=== PATIENT | male | born 1955 | race Caucasian/White ===

== ENCOUNTER 2018-03-08 16:33 | Emergency (ER) | payer MEDICAID ==
[~2018-03-08] VITALS: Ht 172.7 cm; Wt 90.0 kg
[~2018-03-08 16:33] MED LIST: ALBU0.0912 IH; ATOR40TA PO; BUDE1AER IH; CARV25TA PO; FURO-572 PO; POTA20TE62 PO; VAN500I PO; [UNRECOGNIZED DRUG - CODE] PO; [UNRECOGNIZED DRUG - CODE] PO
[2018-03-08 17:18] VITALS: BP 110/49
[2018-03-08 18:34] LABS: BASOPHILS % (AUTO) 0.4 % (0.0-2.0); EOSINOPHILS # (AUTO) 0.1 K/uL (0-0.4); HEMATOCRIT 45.5 % (36-52); HEMOGLOBIN 15.6 g/dL (12.0-18.0); LYMPHOCYTES # (AUTO) 1.2 K/uL (2.0-11.5); LYMPHOCYTES % (AUTO) 11.7 % (20.5-51.1); MEAN CORPUSCULAR HEMOGLOBIN 33 pg (27-31); MEAN CORPUSCULAR HGB CONC 34 g/dL (33-37); MEAN CORPUSCULAR VOLUME 95.1 fL (80-94); MONOCYTES # (AUTO) 1.4 K/uL (0.8-1.0); MONOCYTES % (AUTO) 14.2 % (1.7-9.3); NEUTROPHILS # (AUTO) 7.4 K/uL (1.8-7.7); NEUTROPHILS % (AUTO) 72.7 % (42.2-75.2); PLATELET COUNT (AUTO) 111 K/uL (140-450); RED BLOOD CELL COUNT(AUTO) 4.78 MIL/uL (4.20-6.10); RED CELL DISTRIBUTION WIDTH 12.7 % (11.6-13.7); WHITE BLOOD COUNT (AUTO) 10.2 K/uL (4.8-10.8)
[2018-03-08] MEDS: LEVOFLOXACIN 750 MG/D5W PREMIX 150 ML IV ONE (18:35)
[2018-03-08 18:50] LABS: ANION GAP 13.8 (8-16); CARBON DIOXIDE 24.6 mmol/L (21-32); CREATININE 1.3 mg/dL (0.7-1.3); POTASSIUM 4.4 mmol/L (3.5-5.1)
[2018-03-08 19:01] LABS: ALBUMIN 2.8 g/dL (3.4-5.0); TOTAL BILIRUBIN 1.1 mg/dL (0.0-1.0)
[2018-03-08 19:04] LABS: CREATINE KINASE MB 1.1 ng/mL (0-3.6)
[2018-03-08 19:13] LABS: CHOL/HDL RATIO 2.4 (1-4.5)
[2018-03-08] MEDS ORDERED: MAG SULF 2000 MG/WATER PREMIX 50 ML IV ONE (20:00)
[2018-03-08] MEDS ORDERED: methylPREDNISolone SS 125 MG in WATER STERILE 2 ML IV ONE (20:00)
[2018-03-08] MEDS ORDERED: VANCOMYCIN 1,000 MG VIAL ONE (20:35)
[2018-03-08] MEDS: NACL 0.9% 1,000 ML IV ONE (20:47)
[2018-03-08] MEDS: VANCOMYCIN 1,000 MG in DEXTROSE 5% 250 ML IV ONE (20:52)
[2018-03-08] MEDS ORDERED: ZOLPIDEM 5 MG TAB PO ONE (20:55)
[2018-03-08] MEDS ORDERED: ZOLPIDEM 5 MG TAB ONE (21:57)
[2018-03-08 22:00] VITALS: BP 135/65
== END 2018-03-08 21:59 ==
LOC: MED 16:33
DX: J44.0 Chronic obstructive pulmonary disease with (acute) lower respiratory infection (principal); J18.9 Pneumonia, unspecified organism; I11.0 Hypertensive heart disease with heart failure; I50.9 Heart failure, unspecified; Z88.5 Allergy status to narcotic agent; Z91.018 Allergy to other foods; Z79.899 Other long term (current) drug therapy
CPT/HCPCS: 36415; 71045; 80053; 80061; 82550; 82553; 83605; 83880; 84484; 85025; 85379; 87040; 93005; 96365; 96366; 96367; 99285; J1956; J3370; Q0092